=== PATIENT | female | born 1970 | race African-American/Black ===

== ENCOUNTER 2017-07-27 19:20 | Observation (INO) ==
[2017-07-27] MEDS ORDERED: SODIUM CHLORIDE 0.9% 1,000 ML IV STA (20:22)
[2017-07-27] MEDS ORDERED: ASPIRIN 325 MG TABLET PO STA (20:22)
[2017-07-27] MEDS: NITROGLYCERIN SL 0.4 MG TABLET SL PRN ×2 (20:55→22:40)
[2017-07-27 21:00] LABS: Basophils # 0.1 10*3/uL (0.0-0.2); Basophils % 0.8 % (0.0-0.8); Eosinophils # 0.1 10*3/uL (0.0-0.87); Eosinophils % 1.3 % (0.00-10.9); Hemoglobin 10.6 GM/DL (12.0-16.0); Immature Granulocytes % 0.1 %; Immature Granulocytes Absolute 0.01 #; Lymphocytes # 2.3 10*3/uL (1.4-4.0); Lymphocytes % 32.3 % (21.3-54.2); Mean Corpuscular HGB Conc 32.1 GM/DL (32-36); Mean Corpuscular Hemoglobin 25 PG (27-34); Mean Corpuscular Volume 76.2 FL (87-102); Mean Platelet Volume 10.4 FL (9.6-12.0); Monocytes # 0.4 10*3/uL (0.11-0.8); Monocytes % 5.5 % (1.7-12.7); Neutrophils # 4.3 10*3/uL (1.4-7.4); Platelet Count 287 T/CUMM (130-400); Red Blood Count 4.33 MC/CUMM (3.8-5.5); White Blood Count 7.1 T/CUMM (4-12)
[2017-07-27 21:25] LABS: Calcium 8.6 MG/DL (8.5-10.1); Osmolality,Calculated 275.5 MOS/KG (273-304); Potassium 3.8 MMOL/L (3.5-5.1)
[2017-07-27] MEDS ORDERED: PROCHLORPERAZINE 10 MG TABLET ONE (23:54)
[2017-07-28] MEDS ORDERED: PROCHLORPERAZINE 10 MG TABLET PO STA
[2017-07-28] MEDS ORDERED: ACETAMINOPHEN 325 MG TABLET ONE (01:30)
[2017-07-28] MEDS ORDERED: ACETAMINOPHEN 325 MG TABLET PO ONE (01:32)
[2017-07-28] MEDS ORDERED: MORPHINE 4 MG/1 ML VIAL IV PRN (02:35)
[2017-07-28] MEDS ORDERED: METHOCARBAMOL 750 MG TABLET PO PRN (02:35)
[2017-07-28] MEDS ORDERED: traMADol 50 MG TABLET PO PRN (02:35)
[2017-07-28] MEDS ORDERED: ONDANSETRON 4 MG/2 ML VIAL IV PRN (02:35)
[2017-07-28] MEDS ORDERED: SIMETHICONE CHEW 125 MG TABLET PO PRN (02:35)
[2017-07-28 02:59] LABS: Risk Ratio 2.96; VLDL CHOLESTEROL 11.6 MG/DL
[2017-07-28] MEDS: PANTOPRAZOLE 40 MG TABLET PO SCH (08:57)
[2017-07-28] MEDS: DOCUSATE SODIUM 100 MG CAPSULE PO SCH ×2 (08:57→20:28)
[2017-07-28] MEDS: BACLOFEN 10 MG TABLET PO SCH ×2 (08:57→20:28)
[2017-07-28] MEDS: ASPIRIN EC 81 MG TABLET PO SCH (08:57)
[2017-07-28] MEDS ORDERED: KETOROLAC 30 MG/1 ML VIAL IV ONE (13:30)
[2017-07-28] MEDS ORDERED: KETOROLAC 30 MG/1 ML VIAL IV PRN (13:30)
[2017-07-28] MEDS: GABAPENTIN 100 MG CAPSULE PO SCH ×2 (14:48→20:28)
[2017-07-29 08:29] VITALS: BP 116/88
[2017-07-29] MEDS: BACLOFEN 10 MG TABLET PO SCH (08:55)
[2017-07-29] MEDS: GABAPENTIN 100 MG CAPSULE PO SCH (08:55)
[2017-07-29] MEDS: ASPIRIN EC 81 MG TABLET PO SCH (08:56)
[2017-07-29] MEDS: DOCUSATE SODIUM 100 MG CAPSULE PO SCH (08:56)
[2017-07-29] MEDS: PANTOPRAZOLE 40 MG TABLET PO SCH (08:56)
== END 2017-07-29 11:40 | disposition home or self-care (01) ==
LOC: N.ED 19:20 → N.EDINP 19:20 → SUATTDRO 07-28 01:55 → N.4E 07-28 02:45
PROVIDERS: ADMIT Internal Medicine; ATTEND Hospitalist